=== PATIENT | male | born 1955 | race Caucasian/White ===

== ENCOUNTER → 2017-01-02 | Outpatient (CLI) | payer OTHER ==
[~2017-01-02] VITALS: Ht 193 cm; Wt 141.0 kg
[~2017-01-02] MED LIST: AMMO225L14 TP; ASA3 PO; ASCO500 PO; CEPH500 PO; CLOT15C TP; COLL30OI TP; DIPH25 PO; FERR-72 PO; FOLI0.4T30 PO; FURO20 PO; IBUP-1681 PO; LEVO500 PO; LIDOCAINE HCL 4% 50 ML SOLUTION TP ONE; MELA1TAB16 PO; OLAN5Z PO; TRIA15OI6 TP; TRIAMCINOLONE 0.1% 15 GM OINTMENT TP ONE
[2017-01-02 14:42] VITALS: BP 145/66
== END | disposition home or self-care (01) ==
LOC: HBOWC 13:31
PROVIDERS: ATTEND Emergency Medicine
DX: L97.811 Non-pressure chronic ulcer of other part of right lower leg limited to breakdown of skin (principal); L97.821 Non-pressure chronic ulcer of other part of left lower leg limited to breakdown of skin; I89.0 Lymphedema, not elsewhere classified; E66.9 Obesity, unspecified; F10.10 Alcohol abuse, uncomplicated; Z72.0 Tobacco use
CPT/HCPCS: 97597; 97598; G0463

== ENCOUNTER → 2017-01-10 | Outpatient (CLI) | payer OTHER ==
[~2017-01-10] MED LIST changes: -CLOT15C TP; -COLL30OI TP; -LEVO500 PO; -OLAN5Z PO; -TRIAMCINOLONE 0.1% 15 GM OINTMENT TP ONE
[2017-01-10 11:23] VITALS: BP 155/83
== END | disposition home or self-care (01) ==
LOC: HBOWC 09:30
PROVIDERS: ATTEND Emergency Medicine Undersea and Hyperbaric Medicine
DX: L97.821 Non-pressure chronic ulcer of other part of left lower leg limited to breakdown of skin (principal); L97.811 Non-pressure chronic ulcer of other part of right lower leg limited to breakdown of skin; I89.0 Lymphedema, not elsewhere classified; E66.9 Obesity, unspecified; F10.10 Alcohol abuse, uncomplicated; Z72.0 Tobacco use
CPT/HCPCS: 97597; 97598

== ENCOUNTER → 2017-01-25 | Outpatient (CLI) | payer OTHER ==
[2017-01-25 11:49] VITALS: BP 126/67
== END | disposition home or self-care (01) ==
LOC: HBOWC 08:53
PROVIDERS: ATTEND Emergency Medicine
DX: L97.821 Non-pressure chronic ulcer of other part of left lower leg limited to breakdown of skin (principal); L97.811 Non-pressure chronic ulcer of other part of right lower leg limited to breakdown of skin; I89.0 Lymphedema, not elsewhere classified; E66.9 Obesity, unspecified; Z72.0 Tobacco use; F10.10 Alcohol abuse, uncomplicated
CPT/HCPCS: 97597; 97598

== ENCOUNTER → 2017-02-01 | Outpatient (CLI) | payer OTHER ==
[~2017-02-01] MED LIST changes: -CEPH500 PO; +CIPR-278 PO
[2017-02-01 14:10] VITALS: BP 146/84
== END | disposition home or self-care (01) ==
LOC: HBOWC 13:33
PROVIDERS: ATTEND Emergency Medicine
DX: L97.821 Non-pressure chronic ulcer of other part of left lower leg limited to breakdown of skin (principal); L97.811 Non-pressure chronic ulcer of other part of right lower leg limited to breakdown of skin; I89.0 Lymphedema, not elsewhere classified; F10.10 Alcohol abuse, uncomplicated; E66.9 Obesity, unspecified; Z72.0 Tobacco use
CPT/HCPCS: 97597; 97598

== ENCOUNTER → 2017-02-09 | Outpatient (CLI) | payer OTHER ==
[~2017-02-09] MED LIST changes: -LIDOCAINE HCL 4% 50 ML SOLUTION TP ONE
[2017-02-09 14:15] VITALS: BP 130/61
== END | disposition home or self-care (01) ==
LOC: HBOWC 13:23
PROVIDERS: ATTEND Emergency Medicine
DX: L97.821 Non-pressure chronic ulcer of other part of left lower leg limited to breakdown of skin (principal); L97.811 Non-pressure chronic ulcer of other part of right lower leg limited to breakdown of skin; I89.0 Lymphedema, not elsewhere classified; E66.9 Obesity, unspecified; F10.10 Alcohol abuse, uncomplicated
CPT/HCPCS: 97597; 97598

== ENCOUNTER → 2017-02-24 | Outpatient (CLI) | payer OTHER ==
[~2017-02-24] MED LIST changes: +LIDOCAINE HCL 4% 50 ML SOLUTION TP ONE
[2017-02-24 14:06] VITALS: BP 124/67
== END | disposition home or self-care (01) ==
LOC: HBOWC 13:13
PROVIDERS: ATTEND Emergency Medicine
DX: L97.821 Non-pressure chronic ulcer of other part of left lower leg limited to breakdown of skin (principal); L97.811 Non-pressure chronic ulcer of other part of right lower leg limited to breakdown of skin; I89.0 Lymphedema, not elsewhere classified; E66.9 Obesity, unspecified
CPT/HCPCS: 97597; 97598

== ENCOUNTER → 2017-03-10 | Outpatient (CLI) | payer OTHER ==
[~2017-03-10] MED LIST changes: +CEPH500 PO; +LIDOCAINE HCL 2% 5 ML JELLY TP ONE; +TRIAMCINOLONE 0.1% 15 GM OINTMENT TP ONE
[2017-03-10 13:57] VITALS: BP 150/76
== END | disposition home or self-care (01) ==
LOC: HBOWC 13:14
PROVIDERS: ATTEND Emergency Medicine
DX: L97.821 Non-pressure chronic ulcer of other part of left lower leg limited to breakdown of skin (principal); I89.0 Lymphedema, not elsewhere classified; E66.9 Obesity, unspecified; F10.10 Alcohol abuse, uncomplicated; Z72.0 Tobacco use
CPT/HCPCS: 97597; 97598

== ENCOUNTER → 2017-03-24 | Outpatient (CLI) | payer OTHER ==
[~2017-03-24] MED LIST changes: -CEPH500 PO; -LIDOCAINE HCL 2% 5 ML JELLY TP ONE; -LIDOCAINE HCL 4% 50 ML SOLUTION TP ONE; -TRIAMCINOLONE 0.1% 15 GM OINTMENT TP ONE
[2017-03-24 11:13] VITALS: BP 110/82
== END | disposition home or self-care (01) ==
LOC: HBOWC 11:04
PROVIDERS: ATTEND Emergency Medicine
DX: L97.821 Non-pressure chronic ulcer of other part of left lower leg limited to breakdown of skin (principal); L97.811 Non-pressure chronic ulcer of other part of right lower leg limited to breakdown of skin; I89.0 Lymphedema, not elsewhere classified; E66.9 Obesity, unspecified; M20.41 Other hammer toe(s) (acquired), right foot; Z68.1 Body mass index [BMI] 19.9 or less, adult; F10.10 Alcohol abuse, uncomplicated; Z72.0 Tobacco use
CPT/HCPCS: 97597; 97598

== ENCOUNTER → 2017-04-07 | Outpatient (CLI) | payer OTHER ==
[~2017-04-07] MED LIST changes: -ASA3 PO; +ASPI-989 PO; -FOLI0.4T30 PO; +FOLI0.4T4 PO; -IBUP-1681 PO; +IBUP-2354 PO; +LIDOCAINE HCL 4% 50 ML SOLUTION TP ONE
[2017-04-07 12:27] VITALS: BP 172/94
== END | disposition home or self-care (01) ==
LOC: HBOWC 08:47
PROVIDERS: ATTEND Emergency Medicine
DX: S81.801D Unspecified open wound, right lower leg, subsequent encounter (principal); S81.802D Unspecified open wound, left lower leg, subsequent encounter; E66.01 Morbid (severe) obesity due to excess calories; I89.0 Lymphedema, not elsewhere classified; I10 Essential (primary) hypertension; F10.10 Alcohol abuse, uncomplicated; E66.9 Obesity, unspecified; M20.41 Other hammer toe(s) (acquired), right foot; Z72.0 Tobacco use; Z68.1 Body mass index [BMI] 19.9 or less, adult; X58.XXXD Exposure to other specified factors, subsequent encounter
CPT/HCPCS: 11042; 11045

== ENCOUNTER → 2017-04-18 | Outpatient (CLI) | payer OTHER ==
[~2017-04-18] MED LIST changes: -FERR-72 PO; +FERR325T22 PO; -LIDOCAINE HCL 4% 50 ML SOLUTION TP ONE
[2017-04-18 12:00] VITALS: BP 147/78
== END | disposition home or self-care (01) ==
LOC: HBOWC 10:09
PROVIDERS: ATTEND Emergency Medicine
DX: S81.801D Unspecified open wound, right lower leg, subsequent encounter (principal); S81.802D Unspecified open wound, left lower leg, subsequent encounter; E66.01 Morbid (severe) obesity due to excess calories; I10 Essential (primary) hypertension; I89.0 Lymphedema, not elsewhere classified; F10.10 Alcohol abuse, uncomplicated; M20.41 Other hammer toe(s) (acquired), right foot; Z72.0 Tobacco use; Z68.1 Body mass index [BMI] 19.9 or less, adult; X58.XXXD Exposure to other specified factors, subsequent encounter
CPT/HCPCS: 11042; 11045

== ENCOUNTER → 2017-04-25 | Outpatient (CLI) | payer OTHER ==
[2017-04-25 11:27] VITALS: BP 130/60
== END | disposition home or self-care (01) ==
LOC: HBOWC 10:40
PROVIDERS: ATTEND Emergency Medicine
DX: S81.802D Unspecified open wound, left lower leg, subsequent encounter (principal); S81.801D Unspecified open wound, right lower leg, subsequent encounter; E66.01 Morbid (severe) obesity due to excess calories; I89.0 Lymphedema, not elsewhere classified; I10 Essential (primary) hypertension; F10.10 Alcohol abuse, uncomplicated; Z68.1 Body mass index [BMI] 19.9 or less, adult; Z72.0 Tobacco use; X58.XXXD Exposure to other specified factors, subsequent encounter
CPT/HCPCS: 11042; 11045

== ENCOUNTER → 2017-05-02 | Outpatient (CLI) | payer OTHER ==
[2017-05-02 08:13] VITALS: BP 149/79
== END | disposition home or self-care (01) ==
LOC: HBOWC 07:19
PROVIDERS: ATTEND Emergency Medicine
DX: S81.802D Unspecified open wound, left lower leg, subsequent encounter (principal); S81.801D Unspecified open wound, right lower leg, subsequent encounter; I87.2 Venous insufficiency (chronic) (peripheral); E66.01 Morbid (severe) obesity due to excess calories; I10 Essential (primary) hypertension; I89.0 Lymphedema, not elsewhere classified; Z72.0 Tobacco use; F10.10 Alcohol abuse, uncomplicated; Z68.1 Body mass index [BMI] 19.9 or less, adult; X58.XXXD Exposure to other specified factors, subsequent encounter
CPT/HCPCS: 11042; 11045

== ENCOUNTER → 2017-05-05 | Outpatient (CLI) | payer OTHER ==
[2017-05-05 13:38] VITALS: BP 182/88
== END | disposition home or self-care (01) ==
LOC: HBOWC 10:35
PROVIDERS: ATTEND Emergency Medicine
DX: S81.801D Unspecified open wound, right lower leg, subsequent encounter (principal); S81.802D Unspecified open wound, left lower leg, subsequent encounter; I89.0 Lymphedema, not elsewhere classified; E66.01 Morbid (severe) obesity due to excess calories; I87.2 Venous insufficiency (chronic) (peripheral); Z68.1 Body mass index [BMI] 19.9 or less, adult; I10 Essential (primary) hypertension; F10.10 Alcohol abuse, uncomplicated; X58.XXXD Exposure to other specified factors, subsequent encounter
CPT/HCPCS: 29581

== ENCOUNTER → 2017-05-12 | Outpatient (CLI) | payer OTHER ==
[~2017-05-12] MED LIST changes: +LIDOCAINE HCL 4% 50 ML SOLUTION TP ONE
[2017-05-12 08:34] VITALS: BP 105/76
[2017-05-12 08:36] VITALS: BP 150/52
== END | disposition home or self-care (01) ==
LOC: HBOWC 07:14
PROVIDERS: ATTEND Emergency Medicine
DX: S81.802D Unspecified open wound, left lower leg, subsequent encounter (principal); S81.801D Unspecified open wound, right lower leg, subsequent encounter; I89.0 Lymphedema, not elsewhere classified; I87.2 Venous insufficiency (chronic) (peripheral); I10 Essential (primary) hypertension; F10.10 Alcohol abuse, uncomplicated; E66.01 Morbid (severe) obesity due to excess calories; Z68.1 Body mass index [BMI] 19.9 or less, adult; Z72.0 Tobacco use; X58.XXXD Exposure to other specified factors, subsequent encounter
CPT/HCPCS: 11042; 11045

== ENCOUNTER → 2017-05-16 | Outpatient (CLI) | payer OTHER ==
[~2017-05-16] MED LIST changes: -LIDOCAINE HCL 4% 50 ML SOLUTION TP ONE
[2017-05-16 15:04] VITALS: BP 140/82
== END | disposition home or self-care (01) ==
LOC: HBOWC 12:37
PROVIDERS: ATTEND Emergency Medicine
DX: S81.802D Unspecified open wound, left lower leg, subsequent encounter (principal); S81.801D Unspecified open wound, right lower leg, subsequent encounter; I89.0 Lymphedema, not elsewhere classified; I87.2 Venous insufficiency (chronic) (peripheral); I10 Essential (primary) hypertension; F10.10 Alcohol abuse, uncomplicated; E66.01 Morbid (severe) obesity due to excess calories; Z68.1 Body mass index [BMI] 19.9 or less, adult; Z72.0 Tobacco use; X58.XXXD Exposure to other specified factors, subsequent encounter

== ENCOUNTER → 2017-05-19 | Outpatient (CLI) | payer OTHER ==
[~2017-05-19] MED LIST changes: +LIDOCAINE HCL 4% 50 ML SOLUTION TP ONE
[2017-05-19 11:51] VITALS: BP 138/79
== END | disposition home or self-care (01) ==
LOC: HBOWC 10:45
PROVIDERS: ATTEND Emergency Medicine
DX: E11.622 Type 2 diabetes mellitus with other skin ulcer (principal); L97.822 Non-pressure chronic ulcer of other part of left lower leg with fat layer exposed; L97.812 Non-pressure chronic ulcer of other part of right lower leg with fat layer exposed; I87.2 Venous insufficiency (chronic) (peripheral); I10 Essential (primary) hypertension; I89.0 Lymphedema, not elsewhere classified; F10.10 Alcohol abuse, uncomplicated; E66.01 Morbid (severe) obesity due to excess calories; Z68.1 Body mass index [BMI] 19.9 or less, adult; Z72.0 Tobacco use
CPT/HCPCS: 11042; 11045

== ENCOUNTER → 2017-05-23 | Outpatient (CLI) | payer OTHER ==
[~2017-05-23] MED LIST changes: -LIDOCAINE HCL 4% 50 ML SOLUTION TP ONE
[2017-05-23 12:15] VITALS: BP 144/74
== END | disposition home or self-care (01) ==
LOC: HBOWC 11:20
PROVIDERS: ATTEND Emergency Medicine
DX: S81.802D Unspecified open wound, left lower leg, subsequent encounter (principal); S81.801D Unspecified open wound, right lower leg, subsequent encounter; E66.01 Morbid (severe) obesity due to excess calories; I87.2 Venous insufficiency (chronic) (peripheral); I89.0 Lymphedema, not elsewhere classified; I10 Essential (primary) hypertension; F10.10 Alcohol abuse, uncomplicated; E11.9 Type 2 diabetes mellitus without complications; M20.41 Other hammer toe(s) (acquired), right foot; Z68.1 Body mass index [BMI] 19.9 or less, adult; X58.XXXD Exposure to other specified factors, subsequent encounter

== ENCOUNTER → 2017-05-26 | Outpatient (CLI) | payer OTHER ==
[~2017-05-26] MED LIST changes: -CIPR-278 PO; +LIDOCAINE HCL 2% 5 ML JELLY TP ONE; +LIDOCAINE HCL 4% 50 ML SOLUTION TP ONE
[2017-05-26 09:37] VITALS: BP 126/66
== END | disposition home or self-care (01) ==
LOC: HBOWC 08:44
PROVIDERS: ATTEND Emergency Medicine
DX: E11.621 Type 2 diabetes mellitus with foot ulcer (principal); L97.822 Non-pressure chronic ulcer of other part of left lower leg with fat layer exposed; L97.812 Non-pressure chronic ulcer of other part of right lower leg with fat layer exposed; I89.0 Lymphedema, not elsewhere classified; I87.2 Venous insufficiency (chronic) (peripheral); I10 Essential (primary) hypertension; M20.41 Other hammer toe(s) (acquired), right foot; F10.10 Alcohol abuse, uncomplicated; E66.01 Morbid (severe) obesity due to excess calories; Z68.1 Body mass index [BMI] 19.9 or less, adult; Z72.0 Tobacco use
CPT/HCPCS: 11042; 11045

== ENCOUNTER → 2017-05-30 | Outpatient (CLI) | payer OTHER ==
[~2017-05-30] MED LIST changes: -LIDOCAINE HCL 2% 5 ML JELLY TP ONE; -LIDOCAINE HCL 4% 50 ML SOLUTION TP ONE
[2017-05-30 14:56] VITALS: BP 142/90
== END | disposition home or self-care (01) ==
LOC: HBOWC 12:59
PROVIDERS: ATTEND Emergency Medicine
DX: S81.801D Unspecified open wound, right lower leg, subsequent encounter (principal); S81.802D Unspecified open wound, left lower leg, subsequent encounter; E66.01 Morbid (severe) obesity due to excess calories; I87.2 Venous insufficiency (chronic) (peripheral); I89.0 Lymphedema, not elsewhere classified; I10 Essential (primary) hypertension; E11.9 Type 2 diabetes mellitus without complications; Z68.1 Body mass index [BMI] 19.9 or less, adult; F10.10 Alcohol abuse, uncomplicated; X58.XXXD Exposure to other specified factors, subsequent encounter

== ENCOUNTER → 2017-06-02 | Outpatient (CLI) | payer OTHER ==
[2017-06-02 11:12] VITALS: BP 150/87
== END | disposition home or self-care (01) ==
LOC: HBOWC 09:34
PROVIDERS: ATTEND Orthopaedic Surgery
DX: S81.802D Unspecified open wound, left lower leg, subsequent encounter (principal); S81.801D Unspecified open wound, right lower leg, subsequent encounter; E11.9 Type 2 diabetes mellitus without complications; I87.2 Venous insufficiency (chronic) (peripheral); I89.0 Lymphedema, not elsewhere classified; E66.01 Morbid (severe) obesity due to excess calories; I10 Essential (primary) hypertension; F10.10 Alcohol abuse, uncomplicated; Z68.1 Body mass index [BMI] 19.9 or less, adult; X58.XXXD Exposure to other specified factors, subsequent encounter
CPT/HCPCS: 11042; 11045

== ENCOUNTER → 2017-06-09 | Outpatient (CLI) | payer OTHER ==
[~2017-06-09] MED LIST changes: +LIDOCAINE HCL 4% 50 ML SOLUTION TP ONE
[2017-06-09 08:04] VITALS: BP 153/87
== END | disposition home or self-care (01) ==
LOC: HBOWC 07:25
PROVIDERS: ATTEND Emergency Medicine
DX: E11.622 Type 2 diabetes mellitus with other skin ulcer (principal); L97.811 Non-pressure chronic ulcer of other part of right lower leg limited to breakdown of skin; L97.821 Non-pressure chronic ulcer of other part of left lower leg limited to breakdown of skin; I87.2 Venous insufficiency (chronic) (peripheral); I89.0 Lymphedema, not elsewhere classified; I10 Essential (primary) hypertension; E66.01 Morbid (severe) obesity due to excess calories; F10.10 Alcohol abuse, uncomplicated; Z68.1 Body mass index [BMI] 19.9 or less, adult; Z72.0 Tobacco use
CPT/HCPCS: 11042

== ENCOUNTER → 2017-06-13 | Outpatient (CLI) | payer OTHER ==
[~2017-06-13] MED LIST changes: -LIDOCAINE HCL 4% 50 ML SOLUTION TP ONE
[2017-06-13 13:30] VITALS: BP 180/79
== END | disposition home or self-care (01) ==
LOC: HBOWC 12:59
PROVIDERS: ATTEND Emergency Medicine
DX: S81.802D Unspecified open wound, left lower leg, subsequent encounter (principal); S81.801D Unspecified open wound, right lower leg, subsequent encounter; I87.2 Venous insufficiency (chronic) (peripheral); I89.0 Lymphedema, not elsewhere classified; I10 Essential (primary) hypertension; E11.9 Type 2 diabetes mellitus without complications; E66.01 Morbid (severe) obesity due to excess calories; F10.10 Alcohol abuse, uncomplicated; Z68.1 Body mass index [BMI] 19.9 or less, adult; X58.XXXD Exposure to other specified factors, subsequent encounter
CPT/HCPCS: 11042; 11045

== ENCOUNTER → 2017-06-20 | Outpatient (CLI) | payer OTHER ==
[~2017-06-20] MED LIST changes: -AMMO225L14 TP; +LIDOCAINE HCL 4% 50 ML SOLUTION TP ONE; -TRIA15OI6 TP
[2017-06-20 12:07] VITALS: BP 134/78
== END | disposition home or self-care (01) ==
LOC: HBOWC 10:48
PROVIDERS: ATTEND Emergency Medicine
DX: S81.802D Unspecified open wound, left lower leg, subsequent encounter (principal); S81.801D Unspecified open wound, right lower leg, subsequent encounter; E66.01 Morbid (severe) obesity due to excess calories; I89.0 Lymphedema, not elsewhere classified; I10 Essential (primary) hypertension; E11.9 Type 2 diabetes mellitus without complications; Z68.1 Body mass index [BMI] 19.9 or less, adult; X58.XXXD Exposure to other specified factors, subsequent encounter
CPT/HCPCS: 11042; 11045

== ENCOUNTER → 2017-06-27 | Outpatient (CLI) | payer OTHER ==
[~2017-06-27] MED LIST changes: +LIDOCAINE HCL 2% 5 ML JELLY TP ONE; -LIDOCAINE HCL 4% 50 ML SOLUTION TP ONE
[2017-06-27 11:41] VITALS: BP 115/84
== END | disposition home or self-care (01) ==
LOC: HBOWC 11:07
PROVIDERS: ATTEND Emergency Medicine
DX: S81.802D Unspecified open wound, left lower leg, subsequent encounter (principal); S81.801D Unspecified open wound, right lower leg, subsequent encounter; E11.9 Type 2 diabetes mellitus without complications; I89.0 Lymphedema, not elsewhere classified; I87.2 Venous insufficiency (chronic) (peripheral); E66.01 Morbid (severe) obesity due to excess calories; I10 Essential (primary) hypertension; Z68.1 Body mass index [BMI] 19.9 or less, adult; X58.XXXD Exposure to other specified factors, subsequent encounter
CPT/HCPCS: 11042; 11045